=== PATIENT | male | born 1970 | race Caucasian/White ===

== ENCOUNTER 2016-12-08 23:34 | Emergency (ER) | payer OTHER ==
[~2016-12-08] VITALS: Ht 185.4 cm; Wt 124.5 kg
[2016-12-09 01:48] VITALS: BP 141/83
== END 2016-12-09 01:49 | disposition home or self-care (01) ==
LOC: RME 23:34 → EME 23:34 → RME 12-09 01:49
DX: T65.891A Toxic effect of other specified substances, accidental (unintentional), initial encounter (principal); T20.40XA Corrosion of unspecified degree of head, face, and neck, unspecified site, initial encounter; Y99.0 Civilian activity done for income or pay
CPT/HCPCS: 99281; 99283